=== PATIENT | male | born 1965 | race American Indian/Alaskan Native ===

== ENCOUNTER 2016-11-17 17:45 | Emergency (ER) | payer BC ==
[2016-11-17 17:45] VITALS: BMI 27.9
[2016-11-17 17:54] VITALS: O2SAT 100
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
[2016-11-17] MEDS ORDERED: Sodium Chloride 0.9% 1,000 ML IV STA (18:02)
[2016-11-17] MEDS ORDERED: diaZEpam 10 mg/2 ml Inj IVP ONE (18:02)
[2016-11-17 18:49] LABS: ALB/GLOB RATIO 1.4 (1.1-1.8); ALKALINE PHOSPHATASE 89 U/L (38-133); ALT/SGPT 49 U/L (7-56); AST/SGOT 33 U/L (15-59); BILIRUBIN,TOTAL 0.5 mg/dL (0.2-1.3); BLOOD UREA NITROGEN 14 mg/dL (7-21); CALCIUM 9.4 mg/dL (8.4-10.5); CARBON DIOXIDE 25 mmol/L (21-33); CHLORIDE 102 mmol/L (98-107); GFR AFRICAN-AMERICAN > 60; GLUCOSE,RANDOM 170 mg/dL (70-110); POTASSIUM 4.1 mmol/L (3.6-5.0); SODIUM 138 mmol/L (132-148); TOTAL PROTEIN 7.3 g/dL (5.8-8.3)
[2016-11-17 19:04] LABS: TROPONIN I 0.01 ng/mL
[2016-11-17 19:27] LABS: HEMATOCRIT 39.3 % (42.0-52.0); MEAN CELL VOLUME 82.6 fl (80.0-105.0); MEAN CORPUSCULAR HEMOGLOBIN 28.6 pg (25.0-35.0); MEAN CORPUSCULAR HGB CONC 34.6 g/dl (31.0-37.0); RED CELL DISTRIBUTION WIDTH 12.6 % (11.5-14.5); WHITE BLOOD COUNT 7.5 10^3/ul (4.5-11.0)
[2016-11-17 19:28] LABS: BASO # 0.02 K/mm3 (0.0-2.0); BASO % 0.3 % (0.0-3.0); EOS # 0.1 (0.0-0.7); EOS % 0.9 % (1.5-5.0); GRAN # 5.24 (1.4-6.5); GRAN % 69.8 % (50.0-68.0); LYMPH # 1.6 (1.2-3.4); LYMPH % 21.4 % (22.0-35.0); MEAN PLATELET VOLUME 12.2 fl (7.0-11.0); MONO # 0.6 (0.1-0.6); MONO % 7.6 % (1.0-6.0)
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
[2016-11-17] MEDS ORDERED: Morphine 4 mg/ml ISec IVP STA ×2 (20:32→21:08)
[2016-11-17] MEDS ORDERED: Dexamethasone 4 mg/1 ml IVP STA ×2 (20:32→21:08)
[2016-11-17 21:18] VITALS: BP 134/76; PULSE 64; RESP 16; TEMP 98.1
--- NOTE | 2016-11-18 15:38 | US ---
PROCEDURE: Left upper extremity venous ultrasound HISTORY: Arm pain and swelling. Evaluate for deep venous thrombosis. PHYSICIAN(S): Efrain High MD. FINDINGS: The visualized leftinternal jugular vein is sonographically normal and compressible. No evidence of obstruction or thrombus is seen. The visualized segments of the left subclavian vein are patent with normal waveforms. No sonographic evidence of obstruction or thrombosis is seen. The visualized deep venous system of the proximal leftupper extremity is sonographically normal and compressible. IMPRESSION: 1. No sonographic evidence for deep venous thrombosis in the visualized segments of the left upper extremity.
--- NOTE | 2016-11-18 21:51 | CARD ---
APPROVED REPORT EKG Measurement Heart [id number] <Conclusion> Normal sinus rhythm Normal ECG
== END 2016-11-17 21:00 | disposition home or self-care (01) ==
LOC: ED 17:45
DX: M50.10 Cervical disc disorder with radiculopathy, unspecified cervical region (principal)
CPT/HCPCS: 72125; 80053; 82550; 82553; 83615; 84484; 85025; 93005; 93971; 96374; 96375; 96376; 99284; J1100; J1885; J2270; J3360; J7040